=== PATIENT | female | born 1975 ===

== ENCOUNTER 2021-05-22 20:50 | Observation (INO) | payer OTHER ==
[~2021-05-22] VITALS: Ht 162.6 cm; Wt 93.5 kg
[2021-05-22 22:00] VITALS: BP 134/85; PULSE 76; TEMP 98.4
--- NOTE | 2021-05-22 22:00 | NUR ---
PT RECEIVED ON FLOOR, PT ADMISSION ASSESSMENT COMPLETED. PT ORIENTED TO ROOM AND VISITATION POLICY.
[2021-05-22] MEDS ORDERED: ADVIL200 MG (22:09)
[2021-05-22 23:06] LABS: ARTERIAL BLD GAS O2 SATURATION 98.6 % (92-100); ARTERIAL BLD GAS TCO2 CT 18.3; ARTERIAL BLOOD GAS BASE EXCESS -3.3 (-2-2); ARTERIAL BLOOD GAS HCO3 17.6 meq/L (22-26); ARTERIAL BLOOD GAS pH 7.52 (7.35-7.45)
[2021-05-22 23:07] LABS: ARTERIAL BLOOD GAS PCO2 22.3 mmHg (35-45); ARTERIAL BLOOD GAS PO2 132.2 mmHg (80-100)
[2021-05-22 23:36] VITALS: BP 143/82; PULSE 82; TEMP 98
[2021-05-22 23:52] LABS: INR 1.2 (0.8-3.0); PROTHROMBIN TIME 13.2 SECONDS (9.7-12.8)
[2021-05-22 23:56] LABS: C-REACTIVE PROTEIN 0.7 mg/dL (0.00-0.50); MAGNESIUM 1.9 mg/dL (1.6-2.6)
[2021-05-23 03:37] VITALS: BP 107/65; PULSE 85; TEMP 97.9
[2021-05-23 04:27] LABS: BASO % 0.9 % (0.0-2.0); EOS % 1.3 % (0-4.0); GRAN # 0.8 K/mm3 (1.4-6.5); GRAN % 35.2 % (42.2-75.2); HEMATOCRIT 40.1 % (37.0-47.0); HEMOGLOBIN 13.2 g/dl (12.5-16.0); LYMPH # 1.2 K/mm3 (1.2-3.4); MEAN CELL VOLUME 81 fl (80.0-100.0); MEAN CORPUSCULAR HEMOGLOBIN 27 pg (27.0-31.0); MEAN CORPUSCULAR HGB CONC 33 g/dl (33.0-37.0); MEAN PLATELET VOLUME 12.1 fl (7.4-10.4); MONO # 0.3 K/mm3 (0.1-0.6); MONO % 12.6 % (1.7-9.3); PLATELET COUNT 197 K/mm3 (130-400); RED BLOOD COUNT 4.97 M/mm3 (4.10-5.30); REDCELL DISTRIBUTION WIDTH-CV 13.3 % (11.5-14.5)
[2021-05-23 05:16] LABS: ALBUMIN 3.6 gm/dL (3.5-5.0); BILIRUBIN,TOTAL 0.2 mg/dL (0.2-1.2); CALCIUM 8.9 mg/dL (8.4-10.2); CHOLESTEROL RISK RATIO 3.4; CREATININE, serum 0.76 mg/dL (0.57-1.11); POTASSIUM 3.3 mmol/L (3.5-4.5)
[2021-05-23 05:27] LABS: TROPONIN-I 6 HR POST INITIAL 0.069 ng/mL (0.00-0.033)
--- NOTE | 2021-05-23 05:43 | NUR ---
DAVID ROA NOTIFIED OF CRITICAL TROPONIN, 0.069. DOWN FROM 0000 TROPONIN 0.079.
--- NOTE | 2021-05-23 05:44 | NUR ---
PT CONTINUING ON PLAN OF CARE. PT VITAL SIGNS REMAINED STABLE OVERNIGHT. PT TROPONINS TRENDING DOWN FROM ADMISSION AND TROPONIN LEVEL PRIOR TO TRANSFER. PT ABLE TO AMBULATE INDEPENDENTLY IN ROOM. PT FREE FROM INJURY THIS SHIFT.
[2021-05-23 08:40] VITALS: BP 121/70; PULSE 84; TEMP 98.5
--- NOTE | 2021-05-23 09:04 | NUR ---
Pt. progressing w/ plan of care. AM meds given and assessment complete. Pt. reports headache to forehead area at this time, prn tylenol given, effect pending. Pt. sitting upright and eating breakfast. Plan for echo and director meetings to see pt. today, discussed with pt. Pt. denies further needs at this time, call light and belongings in reach.
[2021-05-23 12:18] VITALS: BP 123/75; PULSE 71; TEMP 97.8
--- NOTE | 2021-05-23 12:38 | NUR ---
Plan for Dr. Dial from cardiology to see patient today. Pt. denies pain, reports she is feeling OK. Pt. reports sinus congestion. Dr. Peacock notified, Dr. Peacock reports pt.'s PRN robitussin should help with her congestion, and suggesting pt. to receive the robitussin PRN to help with her congestion symptoms.
--- NOTE | 2021-05-23 13:55 | NUR ---
Patient is COVID positive therefore this SW did not meet with patient in room. SW contacted patient via phone to discuss discharge plan. Patient and her , Armond Hardin, live in [place] where patient was fully independent with ADLs prior to this hospital stay; no DME's and no oxygen needs. Patient sees a doctor at [facility], where she also receives medications with no difficulty. This worker asked patient if she has a designated MPOA and she stated she didn't think she had one or that she would ever be in this situation and didn't need one. This worker explained the purpose of having one on file and she said she would let me know. *D/C Plan: Home with home health pending p/t, o/t evaluations.
--- NOTE | 2021-05-23 17:04 | NUR ---
Casirivimab and imdevimab infusion administered and complete. Plan for pt. to be discharged. IV removed paperwork to be reviewed. Pt. agreeable w/ plan of care.
--- NOTE | 2021-05-23 18:00 | NUR ---
Pt. discharged home. IV removed, site c/d/i. Pt. verbalized understanding of quarentine restrictions. Pt. left the unit in wheelchair w/ hospital staff. All questions answered.
== END 2021-05-23 18:00 | disposition home or self-care (01) ==
LOC: MEDICAL 20:50
PROVIDERS: Nurse Practitioner Family; ADMIT Internal Medicine
DX: U07.1 COVID-19 (principal); R79.89 Other specified abnormal findings of blood chemistry; Z87.891 Personal history of nicotine dependence
CPT/HCPCS: G0378; J1650; J7030; M0243; Q0244